=== PATIENT | female | born 1985 | race American Indian/Alaskan Native ===

== ENCOUNTER 2017-03-11 23:55 | Emergency (ER) | payer SELFPAY ==
[2017-03-12 02:14] LABS: Basophils % (Auto) 0.5 % (0.0-1.8); Hematocrit 37.1 % (30.3-42.9); Hemoglobin 12.4 gm/dl (10.1-14.3); Mean Corpuscular HGB Conc 34 % (30-34); Mean Corpuscular Hemoglobin 29 pg (28-32); Mean Corpuscular Volume 87 fl (79-97); Platelet Count 260 K/mm3 (140-440); Red Blood Count 4.27 M/mm3 (3.65-5.03); Red Cell Distribution Width 16.5 % (13.2-15.2); White Blood Count 8.2 K/mm3 (4.5-11.0)
[2017-03-12 02:52] LABS: Bacteria,Urine 1+ /HPF (Negative); Bilirubin,Urine NEG (Negative); Blood,Urine NEG (Negative); Ketones,Urine NEG (Negative); Leukocyte Esterase,Urine MOD (Negative); Mucus,Urine 3+ /HPF; Nitrite,Urine NEG (Negative)
--- NOTE | 2017-03-12 03:38 | Ultrasound Report ---
FINAL REPORT EXAM: US OB TRANSVAGINAL, US OB \T\lt; = 14 WEEKS FETUS HISTORY: Cramping, estimated 6 weeks . TECHNIQUE: Directed transabdominal and transvaginal ultrasound examination of the pelvis was performed. No prior studies are available for comparison. FINDINGS: The uterus is anteverted, and measures 9.6 x 8.0 x 12.2 cm. There is a single intrauterine gestation, with visualization of the gestational sac, yolk sac, and pole. On the transvaginal images, the crown-rump length measures 3.3 cm, corresponding to gestational age of 10 weeks, 1 day. There is cardiac activity, with a heart rate of 168 beats per minute. The left ovary measures 2.5 x 2.3 x 2.6 cm, and is normal in appearance. The right ovary is not distinctly visualized. No other adnexal mass is seen. There is no significant pelvic free fluid. IMPRESSION: 1. Single live intrauterine , with gestational age of 10 weeks, 1 day, as estimated by crown-rump length. 2. Nonvisualization of the right ovary.
--- NOTE | 2017-03-12 03:39 | Ultrasound Report ---
FINAL REPORT EXAM: US OB TRANSVAGINAL, US OB \T\lt; = 14 WEEKS FETUS. HISTORY: Cramping, estimated 6 weeks . TECHNIQUE: Directed transabdominal and transvaginal ultrasound examination of the pelvis was performed. No prior studies are available for comparison. FINDINGS: The uterus is anteverted, and measures 9.6 x 8.0 x 12.2 cm. There is a single intrauterine gestation, with visualization of the gestational sac, yolk sac, and pole. On the transvaginal images, the crown-rump length measures 3.3 cm, corresponding to gestational age of 10 weeks, 1 day. There is cardiac activity, with a heart rate of 168 beats per minute. The left ovary measures 2.5 x 2.3 x 2.6 cm, and is normal in appearance. The right ovary is not distinctly visualized. No other adnexal mass is seen. There is no significant pelvic free fluid. IMPRESSION: 1. Single live intrauterine , with gestational age of 10 weeks, 1 day, as estimated by crown-rump length. 2. Nonvisualization of the right ovary.
[2017-03-12 10:21] VITALS: BP 105/51
--- NOTE | 2017-03-12 10:37 | Emergency Department Report ---
ED HPI - General Chief complaint: Vaginal Bleeding Stated complaint: 6 WKS W/CRAMPING Time Seen by Provider: 03/12/17 10:26 Source: patient Mode of arrival: Ambulatory Limitations: No Limitations - History of Present Illness Initial comments: This is a 31-year-old female. She is previously unknown to me. She is 4, para 3. Her last menstrual period was in December. She comes to the ER complaining of left lower quadrant cramping. The cramping has been present since Sunday. It is intermittent. It does not radiate anywhere. There is no nausea, vomiting or diarrhea. There is no bladder or bowel retention or incontinence. Patient is passing gas. She is defecating. There is no vaginal bleeding. The patient denies irritative and obstructive urinary symptoms. She has a follow-up appointment with her [employer] doctor this Sunday. Complaint: other -: Gradual Radiation: LLQ Severity: mild Quality: cramping Consistency: intermittent Improves with: none Worsens with: none Associated symptoms: denies: nausea/vomiting, vaginal bleeding, vaginal discharge, abdominal pain, dysuria, vision changes, malaise, dysparuenia, rash, seizure, shortness of breath, syncope, weakness Vaginal bleeding: none :: Yes Pre- care: followed by OB - Related Data Previous Rx's Medication Instructions Recorded Last Taken Type Doxylamine/Pyridoxine HCl 1 each PO QHS PRN #30 tablet. 03/12/17 Unknown Rx [[facility] 10-10 mg Tablet] Vit W-Ca,Fe,FA(<1 mg) 1 each PO QDAY #30 tablet 03/12/17 Unknown Rx [ Vitamins] Allergies Allergy/AdvReac Type Severity Reaction Status Date / Time No Known Allergies Allergy Unverified 03/12/17 01:18 ED Review of Systems ROS: Stated complaint: 6 WKS W/CRAMPING Other details as noted in HPI Constitutional: denies: fever, malaise Eyes: denies: vision change ENT: denies: epistaxis Respiratory: denies: cough Cardiovascular: denies: chest pain Gastrointestinal: denies: vomiting Genitourinary: denies: urgency, dysuria Musculoskeletal: denies: back pain Skin: denies: lesions Neurological: denies: weakness ED Past Medical Hx - Past Medical History Previous Medical History?: No - Social History Smoking Status: Never Smoker - Medications Home Medications: Home Medications Medication Instructions Recorded Confirmed Last Taken Type Doxylamine/Pyridoxine HCl 1 each PO QHS PRN #30 tablet. 03/12/17 Unknown Rx [[facility] 10-10 mg Tablet] Vit W-Ca,Fe,FA(<1 mg) 1 each PO QDAY #30 tablet 03/12/17 Unknown Rx [ Vitamins] ED Physical Exam - General Limitations: No Limitations General appearance: alert, in no apparent distress - Head Head exam: Present: atraumatic, normocephalic - Eye Eye exam: Present: normal appearance, EOMI. Absent: nystagmus - ENT ENT exam: Present: normal exam, normal orophraynx, mucous membranes moist, normal external ear exam - Neck Neck exam: Present: normal inspection, full ROM. Absent: tenderness, meningismus - Respiratory Respiratory exam: Present: normal lung sounds bilaterally. Absent: respiratory distress, wheezes, rales, rhonchi, stridor, chest wall tenderness - Cardiovascular Cardiovascular Exam: Present: regular rate, normal rhythm, normal heart sounds. Absent: systolic murmur, diastolic murmur, rubs, gallop - GI/Abdominal GI/Abdominal exam: Present: soft, normal bowel sounds. Absent: distended, tenderness, guarding, rebound, rigid, pulsatile mass - Extremities Exam Extremities exam: Present: normal inspection, full ROM, normal capillary refill. Absent: pedal edema, joint swelling, calf tenderness - Back Exam Back exam: Present: normal inspection, full ROM. Absent: tenderness, CVA tenderness (R), CVA tenderness (L), muscle spasm, paraspinal tenderness, vertebral tenderness - Neurological Exam Neurological exam: Present: alert, oriented X3, normal gait, other (Extraocular movements intact. Tongue midline. No facial droop. Facial sensation intact to light touch in the V1, V2, V3 distribution bilaterally. 5 and 5 strength in 4 extremities.. Sensation is intact to light touch in 4 extremities.). Absent : motor sensory deficit - Psychiatric Psychiatric exam: Present: normal affect, normal mood - Skin Skin exam: Present: warm, dry, intact, normal color. Absent: rash ED Course Vital Signs 03/12/17 03/12/17 03/12/17 01:20 06:29 10:20 Temperature 98.2 F 98.8 F 98.7 F Pulse Rate 73 68 68 Respiratory 18 18 18 Rate Blood Pressure 125/75 137/71 Blood Pressure 105/51 [Right] O2 Sat by Pulse 100 100 99 Oximetry ED Medical Decision Making - Lab Data Result diagrams: 03/12/17 01:44 Vital Signs 03/12/17 03/12/17 03/12/17 01:20 06:29 10:20 Temperature 98.2 F 98.8 F 98.7 F Pulse Rate 73 68 68 Respiratory 18 18 18 Rate Blood Pressure 125/75 137/71 Blood Pressure 105/51 [Right] O2 Sat by Pulse 100 100 99 Oximetry Lab Results 03/12/17 03/12/17 03/12/17 Range/Units 01:44 01:44 01:44 WBC 8.2 (4.5-11.0) K/mm3 RBC 4.27 (3.65-5.03) M/mm3 Hgb 12.4 (10.1-14.3) gm/dl Hct 37.1 (30.3-42.9) % MCV 87 (79-97) fl MCH 29 (28-32) pg MCHC 34 (30-34) % RDW 16.5 H (13.2-15.2) % Plt Count 260 (140-440) K/mm3 Lymph % (Auto) 26.6 (13.4-35.0) % [place] % (Auto) 8.6 H (0.0-7.3) % Eos % (Auto) 2.0 (0.0-4.3) % Baso % (Auto) 0.5 (0.0-1.8) % Lymph # 2.2 (1.2-5.4) K/mm3 [place] # 0.7 (0.0-0.8) K/mm3 Eos # 0.2 (0.0-0.4) K/mm3 Baso # 0.0 (0.0-0.1) K/mm3 Seg Neutrophils % 62.3 (40.0-70.0) % Seg Neutrophils # 5.1 (1.8-7.7) K/mm3 HCG, Quant 499778 H (0-4) mIU/mL Urine Color (Yellow) Urine Turbidity (Clear) Urine pH (5.0-7.0) Ur Specific [place] (1.003-1.030) Urine Protein (Negative) mg/dL Urine Glucose (UA) (Negative) mg/dL Urine Ketones (Negative) mg/dL Urine Blood (Negative) Urine Nitrite (Negative) Urine Bilirubin (Negative) Urine Urobilinogen (<2.0) mg/dL Ur Leukocyte Esterase (Negative) Urine WBC (Auto) (0.0-6.0) /HPF Urine RBC (Auto) (0.0-6.0) /HPF U Epithel Cells (Auto) (0-13.0) /HPF Urine Bacteria (Auto) (Negative) /HPF Amorphous Crystals Urine Mucus /HPF Blood Type O POSITIVE PHYLLIS Antibody Screen Negative 03/12/17 Range/Units 01:50 WBC (4.5-11.0) K/mm3 RBC (3.65-5.03) M/mm3 Hgb (10.1-14.3) gm/dl Hct (30.3-42.9) % MCV (79-97) fl MCH (28-32) pg MCHC (30-34) % RDW (13.2-15.2) % Plt Count (140-440) K/mm3 Lymph % (Auto) (13.4-35.0) % [place] % (Auto) (0.0-7.3) % Eos % (Auto) (0.0-4.3) % Baso % (Auto) (0.0-1.8) % Lymph # (1.2-5.4) K/mm3 [place] # (0.0-0.8) K/mm3 Eos # (0.0-0.4) K/mm3 Baso # (0.0-0.1) K/mm3 Seg Neutrophils % (40.0-70.0) % Seg Neutrophils # (1.8-7.7) K/mm3 HCG, Quant (0-4) mIU/mL Urine Color [place] (Yellow) Urine Turbidity Cloudy (Clear) Urine pH 6.0 (5.0-7.0) Ur Specific [place] 1.019 (1.003-1.030) Urine Protein 30 mg/dl (Negative) mg/dL Urine Glucose (UA) Neg (Negative) mg/dL Urine Ketones Neg (Negative) mg/dL Urine Blood Neg (Negative) Urine Nitrite Neg (Negative) Urine Bilirubin Neg (Negative) Urine Urobilinogen 4.0 (<2.0) mg/dL Ur Leukocyte Esterase Mod (Negative) Urine WBC (Auto) 53.0 H (0.0-6.0) /HPF Urine RBC (Auto) 6.0 (0.0-6.0) /HPF U Epithel Cells (Auto) 14.0 H (0-13.0) /HPF Urine Bacteria (Auto) 1+ (Negative) /HPF Amorphous Crystals Few Urine Mucus 3+ /HPF Blood Type PHYLLIS Antibody Screen - Radiology Data Radiology results: report reviewed, image reviewed Obstetrics ultrasound demonstrates a live intrauterine , gestational age of 10 weeks and 1 day, nonvisualized right ovary, cardiac activity with a heart rate of 168 bpm. Left ovary is normal. No adnexal masses are noted. - Medical Decision Making Differential diagnosis: Ovarian cyst, subchorionic hemorrhage, constipation, normal Assessment and plan: 32-year-old female with left lower quadrant cramping. She is afebrile, with reassuring vital signs, with no abdominal tenderness, rebound or guarding. She endorses no irritative or obstructive urinary symptoms, her urinalysis demonstrates positive leukocytes, positive WBCs, 1+ bacteria, but it is contaminated, and she endorses no symptoms. She is going to follow-up with her [employer] doctor this Sunday. Laboratory studies unremarkable, she is Rh+, and her physical exam is benign. It does not appear to be any emergent condition at this time, the patient is tolerating liquid feeds, and she is suitable to follow-up with her outpatient [facility] doctor at this time. Return precautions are reviewed. Critical care attestation.: If time is entered above; I have spent that time in minutes in the direct care of this critically ill patient, excluding procedure time. ED Disposition Clinical Impression: Disposition: DC-01 TO HOME OR SELFCARE Is pt being admited?: No Does the pt Need Aspirin: No Condition: Stable Instructions: (ED) Additional Instructions: Take the medications as directed. Follow-up with your [employer] physician this Sunday as scheduled. Rest and avoid heavy lifting. Avoid strenuous physical activity. Return to the ER right away with new pain, worsening pain, migration of pain, fevers, chills, chest pain, shortness of breath, intractable nausea or vomiting, confusion, inability to tolerate liquid feeds. Prescriptions: Doxylamine/Pyridoxine HCl [[facility] 10-10 mg Tablet] 1 each PO QHS PRN #30 tablet. PRN Reason: Nausea Vit W-Ca,Fe,FA(<1 mg) [ Vitamins] 1 each PO QDAY #30 tablet Referrals: LIVE FLOR MD [Primary Care Provider] - 3-5 Days [facility] [Provider Group] - 3-5 Days [facility] [Provider Group] - 3-5 Days Forms: Work/School Release Form(ED)
== END 2017-03-12 10:46 | disposition home or self-care (01) ==
LOC: ED 23:55
DX: O26.891 Other specified pregnancy related conditions, first trimester (principal); R10.32 Left lower quadrant pain; Z3A.01 Less than 8 weeks gestation of pregnancy
CPT/HCPCS: 36415; 76801; 76817; 81001; 84702; 85025; 86850; 86900; 86901